=== PATIENT | female | born 1945 | race Two or more races ===

== ENCOUNTER 2023-12-14 14:39 | Emergency (ER) | payer MEDICARE, BC ==
[~2023-12-14] VITALS: Ht 165.1 cm; Wt 61.7 kg
[2023-12-14 15:44] LABS: BASOPHILS % (AUTO) 0.4 % (0.0-2.0); EOSINOPHILS # (AUTO) 0.2 K/uL (0.0-0.7); EOSINOPHILS % (AUTO) 2.6 % (0.0-6.0); HEMATOCRIT 29 % (33-45); HEMOGLOBIN 9.4 g/dL (11.5-14.8); LYMPHOCYTES # (AUTO) 0.8 K/uL (0.8-4.8); LYMPHOCYTES % (AUTO) 9.1 % (20.0-44.0); MEAN CORPUSCULAR HEMOGLOBIN 26 PG (26.0-33.0); MEAN CORPUSCULAR HGB CONC 33 g/dl (31.0-36.0); MEAN CORPUSCULAR VOLUME 80 fL (82-100); MONOCYTES # (AUTO) 0.6 K/uL (0.1-1.30); MONOCYTES % (AUTO) 7.3 % (2.0-12.0); NEUTROPHILS # (AUTO) 6.8 K/uL (1.8-8.9); NEUTROPHILS % (AUTO) 80.6 % (43.0-81.0); PLATELET COUNT (AUTO) 321 K/uL (150-450); RED BLOOD CELL COUNT(AUTO) 3.61 MIL/uL (4.0-5.2); RED CELL DISTRIBUTION WIDTH 17.8 % (11.5-15.0); WHITE BLOOD COUNT (AUTO) 8.4 K/uL (4.3-11.0)
[2023-12-14 15:57] LABS: CALCIUM, SERUM 8.3 mg/dL (8.5-10.1); CREATININE 0.8 mg/dL (0.6-1.3)
[2023-12-14] MEDS ORDERED: IOHEXOL-300 100 ML VIAL IV ONE (16:19)
[2023-12-14] MEDS ORDERED: IV NS 0.9% 250 ML IV ONE (16:19)
[2023-12-14] MEDS ORDERED: CT SWABBABLE VALVE TRANS SET 1 EA INFUS.SET MC ONE (16:19)
[2023-12-14] MEDS ORDERED: KETOROLAC TROMETHAMINE 15 MG/ML VIAL ONE (17:25)
[2023-12-14] MEDS ORDERED: PIPERACI/TAZO 3.375GM/D5W 50ML PB IV ONE (17:26)
[2023-12-14] MEDS: KETOROLAC TROMETHAMINE 15 MG/ML VIAL IV ONE (17:29)
[2023-12-14] MEDS: PIPERACILLIN /TAZOBACTAM 3.375 G in IV D5W 50 ML IV ONE (17:30)
[2023-12-14] MEDS ORDERED: IBUP-1955 PO (17:40)
[2023-12-14] MEDS ORDERED: DOXY100C2 PO (17:40)
[2023-12-14 18:22] VITALS: BP 121/69; TEMP 98.5; O2SAT 97
== END 2023-12-14 18:22 | disposition home or self-care (01) ==
LOC: ER 15:00
DX: L03.211 Cellulitis of face (principal); M60.9 Myositis, unspecified; K11.20 Sialoadenitis, unspecified; Z88.5 Allergy status to narcotic agent; Z88.8 Allergy status to other drugs, medicaments and biological substances; Z20.822 Contact with and (suspected) exposure to COVID-19
CPT/HCPCS: 99285; 96365; 70491; 96375; 87426; 85025; 80048; 36415; J2543 ×2; J7060; J7050; Q9967; J1885